=== PATIENT | female | born 1980 | race Caucasian/White ===

== ENCOUNTER 2017-08-29 19:00 | Emergency (ER) | payer OTHER ==
[~2017-08-29] VITALS: Ht 175.3 cm; Wt 68.0 kg
[2017-08-29 19:00] VITALS: BP 118/78
--- NOTE | 2017-08-29 19:34 | ED.ADGEN ---
Past History Past Medical History: Anxiety, GERD, UTI, Other Past Surgical History: Appendectomy, , Knee Replacement, Tubal ligation, Other Smoking: Non-smoker Alcohol Use: None Drug Use: None Adult General Chief Complaint Chief Complaint " I hurt my Lt knee.. it is same one I had surgery on in past.. I hyper extended it this weekend.. it still been hurting... " HPI HPI Patient is a 37 year old female who presents with above hx and complaints of Lt knee pain after hyperextension injury. Pt. follows at [facility]. Pt. has had multiple surgeries on Lt knee. Pt. is ambulatory with limp. Has crutches at home. Distal neurovascular intact. Cad do straight leg lift. Pt. states pain feels interior of knee. No other injuries reported. The pt. to follow up on Thursday with Orthro at [facility]. Review of Systems Review of Systems Constitutional: Denies fever or chills [] Eyes: Denies change in visual acuity, redness, or eye pain [] HENT: Denies nasal congestion or sore throat [] Respiratory: Denies cough or shortness of breath [] Cardiovascular: No additional information not addressed in HPI [] GI: Denies abdominal pain, nausea, vomiting, bloody stools or diarrhea [] : Denies dysuria or hematuria [] Musculoskeletal: Denies back pain or joint pain [] Expect Lt knee pain Integument: Denies rash or skin lesions [] Neurologic: Denies headache, focal weakness or sensory changes [] Endocrine: Denies polyuria or polydipsia [] All other systems were reviewed and found to be within normal limits, except as documented in this note. Family History Family History Non-contributory Current Medications Current Medications Current Medications Medications (Trade) Dose Ordered Sig/Janice Start Time Stop Time Status Last Admin Dose Admin Oxycodone/ Acetaminophen (Percocet 10/325) 1 tab 1X ONCE 08/29/17 20:15 08/29/17 20:16 DC 08/29/17 20:32 1 TAB Allergies Allergies Allergies Coded Allergies Type Severity Reaction Last Updated Verified NKMA Allergy Unknown 08/29/17 Yes [place] And Derivatives Adverse Reaction Unknown 01/31/14 Yes lactose Adverse Reaction Unknown 01/31/14 Yes Physical Exam Physical Exam Constitutional: Well developed, well nourished, no acute distress, non-toxic appearance. [] HENT: Normocephalic, atraumatic, bilateral external ears normal, oropharynx moist, no oral exudates, nose normal. [] Eyes: PERRLA, EOMI, conjunctiva normal, no discharge. [] Neck: Normal range of motion, no tenderness, supple, no stridor. [] Cardiovascular:Heart rate regular rhythm, no murmur [] Lungs & Thorax: Bilateral breath sounds clear to auscultation [] Abdomen: Bowel sounds normal, soft, no tenderness, no masses, no pulsatile masses. [] Old surgery scars. Skin: Warm, dry, no erythema, no rash. [] Back: No tenderness, no CVA tenderness. [] Extremities: No tenderness, no cyanosis, no clubbing, ROM intact Except Lt knee. , lt knee edema. [] Lt knee tenderness. Multiple old knee surgery scars. Neurologic: Alert and oriented X 3, normal motor function, normal sensory function, no focal deficits noted. [] Psychologic: Affect normal, judgement normal, mood normal. [] Current Patient Data Vital Signs Vital Signs Date Time Temp Pulse Resp B/P (MAP) Pulse Ox O2 Delivery O2 Flow Rate FiO2 08/29/17 19:00 97.7 80 20 118/78 (91) 99 Room Air EKG EKG [] Radiology/Procedures Radiology/Procedures My interpretation Lt knee- Chronic changes. No obvious displaced fx. or dislocation.[] Course & Med Decision Making Course & Med Decision Making Pertinent Labs and Imaging studies reviewed. (See chart for details)- Ice, elevation, rest, splint, crutches, and follow up orthro. [] Final Impression Final Impression 1. Lt knee[]- Sprain. Problems: Dragon Disclaimer Dragon Disclaimer This electronic medical record was generated, in whole or in part, using a voice recognition dictation system. YAZ CLARKE MD Aug 29, 2017 19:34
[2017-08-29] MEDS ORDERED: HYDR-79 PO (19:49)
--- NOTE | 2017-08-29 20:01 | RAD ---
EXAM: Left knee, 4 views. HISTORY: Fall. COMPARISON: None. FINDINGS: Frontal, lateral, oblique and sunrise views of the left knee are obtained. There is minimal medial and patellofemoral compartment spurring. There is no acute fracture, dislocation or subluxation. There is no joint effusion. There are tiny ossicles along the anterior medial proximal tibial metaphysis. IMPRESSION: No acute osseous finding. Electronically signed by: Lucy Vela MD (08/29/2017 7:57 PM) [facility]
[2017-08-29] MEDS ORDERED: oxyCODONE/APAP 10/325 1 TAB TABLET PO ONE (20:15)
== END 2017-08-29 20:52 | disposition home or self-care (01) ==
LOC: ER 19:00
DX: S83.92XA Sprain of unspecified site of left knee, initial encounter (principal); F41.9 Anxiety disorder, unspecified; K21.9 Gastro-esophageal reflux disease without esophagitis; Z87.440 Personal history of urinary (tract) infections; Z96.659 Presence of unspecified artificial knee joint; Z91.048 Other nonmedicinal substance allergy status; Z91.011 Allergy to milk products; X50.9XXA Other and unspecified overexertion or strenuous movements or postures, initial encounter; Y93.89 Activity, other specified; Y99.8 Other external cause status; Y92.89 Other specified places as the place of occurrence of the external cause
CPT/HCPCS: 29515; 73564; 99284

== ENCOUNTER 2018-10-04 08:01 | Emergency (ER) | payer OTHER ==
[~2018-10-04] VITALS: Ht 175.3 cm; Wt 70.3 kg
[~2018-10-04 08:01] MED LIST: HYDR-1179 PO
[2018-10-04] MEDS ORDERED: IV NORMAL SALINE 1,000ML 1,000 ML IV SCH (08:30)
[2018-10-04] MEDS ORDERED: ONDANSETRON PF 4 MG/2 ML VIAL. IV ONE (08:30)
--- NOTE | 2018-10-04 08:43 | PHYS DOC ---
Past History Past Medical History: Anxiety, GERD, UTI, Other Past Surgical History: Appendectomy, , Knee Replacement, Tubal ligation, Other Smoking: Non-smoker Alcohol Use: None Drug Use: None Adult General Chief Complaint Chief Complaint: NAUSEA/VOMITING/[facility] HPI Patient is a 38 year old female who presents with complaining of nausea and dizziness. 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 Patient's daughter had multiple episodes of vomiting but she hasn't start to vomit or having diarrhea yet. Patient denies fever and chills, , urinary symptom , abdominal pain. Review of Systems Review of Systems Constitutional: Denies fever or chills [] Eyes: Denies change in visual acuity, redness, or eye pain [] HENT: Denies nasal congestion or sore throat [] Respiratory: Denies cough or shortness of breath [] Cardiovascular: No additional information not addressed in HPI [] GI: Denies abdominal pain, vomiting, bloody stools or diarrhea , reports nausea[ ] : Denies dysuria or hematuria [] Musculoskeletal: Denies back pain or joint pain [] Integument: Denies rash or skin lesions [] Neurologic: Denies headache, focal weakness or sensory changes [] Endocrine: Denies polyuria or polydipsia [] All other systems were reviewed and found to be within normal limits, except as documented in this note. Allergies Allergies Allergies Coded Allergies Type Severity Reaction Last Updated Verified NKMA Allergy Unknown 08/29/17 Yes [place] And Derivatives Adverse Reaction Unknown 01/31/14 Yes lactose Adverse Reaction Unknown 01/31/14 Yes Physical Exam Physical Exam Constitutional: Well developed, well nourished, mild distress, non-toxic appearance. [] HENT: Normocephalic, atraumatic, oropharynx moist, no oral exudates, nose normal. [] Eyes: PERRLA, EOMI, conjunctiva normal, no discharge. [] Neck: Normal range of motion, no tenderness, supple, no stridor. [] Cardiovascular:Heart rate regular rhythm, no murmur [] Lungs & Thorax: Bilateral breath sounds clear to auscultation [] Abdomen: Bowel sounds normal, soft, no tenderness, no masses, no pulsatile masses. [] Skin: Warm, dry, no erythema, no rash. [] Back: No tenderness, no CVA tenderness. [] Extremities: No tenderness, no cyanosis, no clubbing, ROM intact, no edema. [] Neurologic: Alert and oriented X 3, normal motor function, normal sensory function, no focal deficits noted. [] Psychologic: Affect normal, judgement normal, mood normal. [] EKG EKG [] Radiology/Procedures Radiology/Procedures [] Course & Med Decision Making Course & Med Decision Making Pertinent Labs studies reviewed. (See chart for details) Evaluation of patient in ER showed 38-year-old female patient with nausea and dizziness after had food at her latter-day. Patient treated with IV fluid and Zofran and felt better. Labs was unremarkable. Plan discharge patient home to diagnose of food poisoning. Dragon Disclaimer Dragon Disclaimer This electronic medical record was generated, in whole or in part, using a voice recognition dictation system. Departure Departure: Impression: Primary Impression: Food poisoning Additional Impression: Nausea Disposition: HOME, SELF-CARE (at 1001) Condition: IMPROVED Referrals: CARLOS FAITH MD (PCP) Patient Instructions: Food Poisoning, Nausea, Adult Additional Instructions: Drink plenty of liquids Follow-up with your primary care physician in 3-5 days Return to ER if not getting better Do not eat solid foods today Scripts Ondansetron Hcl (ZOFRAN) 4 Mg Tablet 1 TAB PO Q6HRS for nausea and vomiting, #12 TAB Prov: KAYLEE PALOMARES MD 10/04/18 Problem Qualifiers KAYLEE PALOMARES MD Oct 04, 2018 08:43
[2018-10-04 08:50] LABS: BASO % 0 % (0-3); EOS % 1 % (0-3); HEMATOCRIT 41.6 % (36.0-47.0); HEMOGLOBIN 13.8 g/dL (12.0-15.5); LYMPH # 0.7 x10^3/uL (1.0-4.8); LYMPH % 9 % (24-48); MEAN CORPUSCULAR HEMOGLOBIN 30 pg (25-35); MEAN CORPUSCULAR HGB CONC 33 g/dL (31-37); MEAN CORPUSCULAR VOLUME 92 fL (79-100); MONO # 0.4 x10^3/uL (0.0-1.1); MONO % 5 % (0-9); NEUT # 7.2 x10^3uL (1.8-7.7); NEUT % 86 % (31-73); PLATELET COUNT 125 x10^3/uL (140-400); RED BLOOD COUNT 4.54 x10^6/uL (3.50-5.40); RED CELL DISTRIBUTION WIDTH 13.3 % (11.5-14.5); WHITE BLOOD COUNT 8.3 x10^3/uL (4.0-11.0)
[2018-10-04 09:06] LABS: ALBUMIN 3.4 g/dL (3.4-5.0); CALCIUM 7.9 mg/dL (8.5-10.1); CREATININE 0.6 mg/dL (0.6-1.0); GFR 110.7; POTASSIUM 3.9 mmol/L (3.5-5.1); TOTAL BILIRUBIN 0.4 mg/dL (0.2-1.0); TOTAL PROTEIN 6.9 g/dL (6.4-8.2)
[2018-10-04 09:32] VITALS: BP 107/62
[2018-10-04 09:57] LABS: BACTERIA,URINE FEW /HPF (0-FEW); BILIRUBIN,URINE NEG (NEG); CLARITY,URINE HAZY; COLOR,URINE YELLOW; GLUCOSE,URINE NEG (NEG); NITRITE,URINE NEG (NEG); SQUAMOUS EPITHELIAL CELL,UR FEW /LPF; UROBILINOGEN,URINE 0.2 mg/dL (0.2 mg/dL); WBC,URINE OCC /HPF (0-4)
[2018-10-04] MEDS ORDERED: ONDA4TAB7 PO (10:02)
== END 2018-10-04 10:17 | disposition home or self-care (01) ==
LOC: ER 08:01
DX: T62.91XA Toxic effect of unspecified noxious substance eaten as food, accidental (unintentional), initial encounter (principal); R42 Dizziness and giddiness; R11.2 Nausea with vomiting, unspecified; K21.9 Gastro-esophageal reflux disease without esophagitis; Z87.440 Personal history of urinary (tract) infections; Z88.8 Allergy status to other drugs, medicaments and biological substances; Z91.011 Allergy to milk products; Y92.89 Other specified places as the place of occurrence of the external cause
CPT/HCPCS: 36415; 80053; 81001; 83690; 85025; 96361; 96374; 99283; J2405; J7030

== ENCOUNTER → 2021-09-30 | Outpatient (CLI) | payer OTHER ==
[~2021-09-30] MED LIST changes: +ONDA4TAB7 PO
--- NOTE | 2021-09-30 15:23 | RAD ---
INDICATION: Reason: cough / Spl. Instructions: / History: COMPARISON: None. FINDINGS: 2 view of chest obtained. Scoliotic curvature the spine with degenerative changes as well as scoliosis rods. Cardiac silhouette is unremarkable. No definite focal airspace consolidation. IMPRESSION: * No focal airspace consolidation or edema. Electronically signed by: Phong Araujo MD (09/30/2021 3:21 PM) [id number]
== END ==
LOC: PMG 14:46
PROVIDERS: ATTEND Family Medicine
DX: R05.9 Cough, unspecified (principal); Z20.89 Contact with and (suspected) exposure to other communicable diseases; M47.814 Spondylosis without myelopathy or radiculopathy, thoracic region; M41.84 Other forms of scoliosis, thoracic region
CPT/HCPCS: 71046